=== PATIENT | male | born 1975 | race Caucasian/White ===

== ENCOUNTER 2016-11-18 18:31 | Inpatient (IN) | payer BC, OTHER ==
[~2016-11-18] VITALS: Ht 182.9 cm; Wt 65.3 kg
[2016-11-18 21:45] VITALS: BP 122/73
[2016-11-18 21:54] LABS: *AMPHETAMINE, URINE NEGATIVE (NEGATIVE); *BARBITURATE, URINE NEGATIVE (NEGATIVE); *CANNABINOID, URINE NEGATIVE (NEGATIVE); *COCCAINE, URINE POSITIVE (NEGATIVE); *OPIATE, URINE NEGATIVE (NEGATIVE); *PHENCYCLIDINE SCREEN,URINE NEGATIVE (NEGATIVE)
--- NOTE | 2016-11-18 22:00 | NUR ---
Admission Patient is a 41-year-old male, arriving from [place], to receive treatment for his reported Cocaine use. Patient was escorted on to unit to his room by male BHT, where body check was rendered. Skin check was rendered by male nurse and skin noted intact, and at that time patient was able to provide Admission Urine Drug Screen. Patient is alert, oriented, ambulatory with no assistance needed. Breathing even and non labored with no signs of pain or discomfort noted. Vital signs rendered and noted as 122/73, 86, 18, 98.5, 0/10, 97.9. Height noted at 6'0 and weight noted at 144lbs. Patient verbalized No known allergies. Patient wishes to be Full Code. Follows a Regular Diet at home. Patient is noted to be very calm and Cooperative. Patient denies any suicidal or homicidal thoughts. BUE and BLE noted WNL. Lung sounds clear with no cough. Bowel sounds active in all quadrants with LBM verbalized 11/17/16. Patient Denies any past medical history. No history of seizures. Patients chief complaint verbalized as ""I felt like my life was going backwards." He explains his use as: 1. Cocaine, Since the age of 20, using on and off with 2-3 day binges, while using patient uses 7gm via nasal or PO, with last use 11/18/16 0800. Patient reports of using the remainder of what he had left from the previous day. Patient reports signs and symptoms of withdrawal as "restlessness and body aches." He reports of having 5 years sober from 2007 to 2012. He Reports this is his first time in detox. No past medical history noted. Patient brought in home medications of Tenex 1mg for anxiety. Patient states "I never took them." Patient reports no PCP. All Information relayed to MD with orders for labs to be rendered and PRN Medications available for increased signs and symptoms of Withdrawal. All needs attended to promptly. Will continue plan of care as ordered.
[2016-11-18] MEDS ORDERED: LOPERAMIDE HCL 2 MG CAPSULE PO PRN ×2 (22:45)
[2016-11-18] MEDS ORDERED: HYDROXYZINE PAMOATE 25 MG CAPSULE PO PRN (22:45)
[2016-11-18] MEDS ORDERED: ACETAMINOPHEN 325 MG TABLET PO PRN (22:45)
[2016-11-18] MEDS ORDERED: METHOCARBAMOL 750 MG TABLET PO PRN (22:45)
[2016-11-18] MEDS ORDERED: MAG HYDROX/AL HYDROX/SIMETH 30 ML LIQUID UDC PO PRN (22:45)
[2016-11-18] MEDS ORDERED: MIRALAX 17 GM POWD.PACK PO PRN (22:45)
[2016-11-18] MEDS ORDERED: DICYCLOMINE HCL 20 MG TABLET PO PRN (22:45)
[2016-11-18] MEDS ORDERED: ONDANSETRON ODT 4 MG TAB.RAPDIS SL PRN (22:45)
[2016-11-18] MEDS ORDERED: diphenhydrAMINE 50 MG CAPSULE PO PRN (22:45)
[2016-11-18] MEDS ORDERED: CLONIDINE HCL 0.1 MG TABLET PO PRN (22:45)
[2016-11-18] MEDS ORDERED: IBUPROFEN 600 MG TABLET PO PRN (22:45)
[2016-11-18] MEDS ORDERED: MAGNESIUM HYDROXIDE 30 ML LIQUID UDC PO PRN (22:45)
[2016-11-18] MEDS ORDERED: PROMETHAZINE HCL 25 MG/1 ML VIAL IM PRN (22:45)
[2016-11-18 23:10] LABS: BASOPHILS # (AUTO) 0.1 K/uL (0.0-0.2); EOSINOPHILS # (AUTO) 0.6 K/uL (0.0-0.7); EOSINOPHILS % (AUTO) 6.8 % (0.0-7.0); HEMOGLOBIN 12.7 g/dL (14.0-18.0); LYMPHOCYTES # (AUTO) 2.9 K/uL (0.8-4.8); LYMPHOCYTES % (AUTO) 34.1 % (20.5-51.5); MEAN CORPUSCULAR HEMOGLOBIN 29.3 uug (27.0-31.0); MEAN CORPUSCULAR HGB CONC 33 g/dL (32.0-37.0); MEAN CORPUSCULAR VOLUME 87.7 fL (82.0-92.0); MONOCYTES # (AUTO) 0.7 K/uL (0.1-1.30); NEUTROPHILS # (AUTO) 4.2 K/uL (1.8-8.9); NEUTROPHILS % (AUTO) 50.1 % (38.5-71.5); PLATELET COUNT (AUTO) 367 K/uL (150-450); RED BLOOD CELL COUNT(AUTO) 4.33 MIL/uL (4.70-6.10); WHITE BLOOD COUNT (AUTO) 8.5 K/uL (4.0-11.2)
[2016-11-18 23:21] LABS: ALANINE AMINOTRANSFERASE 16 U/L (16-63); ALBUMIN 3.5 g/dL (3.4-5.0); ALKALINE PHOSPHATASE 60 U/L (50-136); ASPARTATE AMINOTRANSFERASE 16 U/L (15-37); BILIRUBIN,TOTAL 0.2 mg/dL (0.2-1.0); CALCIUM 9.3 mg/dL (8.5-10.1); CARBON DIOXIDE 30 mmol/L (21-32); CHLORIDE 105 mmol/L (98-107); GFR 56 mL/min (>60); GLUCOSE 136 mg/dL (74-106); MAGNESIUM 1.7 mg/dL (1.8-2.4); POTASSIUM 3.4 mmol/L (3.5-5.1); SODIUM SERUM 144 mmol/L (136-145); TOTAL PROTEIN, SERUM 6.8 g/dL (6.4-8.2); UREA NITROGEN, BLOOD 15 mg/dL (7-18)
[2016-11-18 23:26] LABS: CREATININE 1.4 mg/dL (0.6-1.3)
[2016-11-18 23:32] LABS: THYROID STIMULATING HORMONE 1.861 mIU/mL (0.358-3.740)
[2016-11-18] MEDS ORDERED: MAGNESIUM OXIDE 400 MG TABLET PO ONE (23:45)
[2016-11-18] MEDS ORDERED: POTASSIUM CHLORIDE 20 MEQ TAB.PRT.SR PO ONE (23:45)
[2016-11-18 23:50] LABS: ETHANOL < 3 MG/DL (0-0)
--- NOTE | 2016-11-18 23:50 | NUR ---
MD Communication/Medication Administration labs rendered and relayed to MD. Potassium noted at 3.4 and Magnesium noted at 1.7. New orders for Potassium 40meq x1 and Magnesium 400x1. Medications administered. patient able to tolerate well. Will continue to monitor.
[2016-11-19] MEDS ORDERED: POTASSIUM CHLORIDE 10 MEQ CAPSULE.SA PO ONE
[2016-11-19] MEDS ORDERED: MAGNESIUM OXIDE 400 MG TABLET PO ONE
[2016-11-19 00:07] VITALS: BP 111/64
[2016-11-19 00:15] LABS: HIV-1 p24 ANTIGEN NON REACTIVE (NONREACTIVE); HIV-1/2 ANTIBODY NON REACTIVE (NONREACTIVE)
[2016-11-19 04:29] VITALS: BP 109/60
[2016-11-19] MEDS ORDERED: GUAN1TAB16 PO (06:05)
--- NOTE | 2016-11-19 07:00 | NUR ---
End of Shift Patient is in bed sleeping. Breathing even and non labored. No signs of pain or discomfort noted. Patient is a 41 year old male, admitted 11/18/16 for Substance Dependence, under the care of Dr. Desai, with PRN medications available for increase signs of withdrawal. Patient verbalizes No known allergies, wishes to be full code, following a regular diet, skin intact, on fall precautions. No denies past medical history. No suicidal or homicidal ideations noted. Labs resulted with Potassium of 3.4 and Magnesium of 1.7, Supplemented with KDUR 40meq x1 and Mag OX 400mg x1. Patient tolerated well. All needs attended to promptly. Will endorse to continue plan of care a ordered.
--- NOTE | 2016-11-19 07:30 | NUR ---
START OF SHIFT NOTE: Received report from car shifter nurse. Patient is a 41 year old male, admitted 11/18/16 for cocaine dependence. Pt here for observation only. Pt is alert and oriented X4. Color good, skin warm and dry. Respirations even and unlabored. Pt resting in bed at this time. Safety precautions observed. Call light within reach. Will continue to monitor.
[2016-11-19 08:00] VITALS: BP 114/75
[2016-11-19] MEDS ORDERED: TUBERCULIN,PURIF.PROT.DERIV. 5 TU/0.1 ML TEST ID ONE (09:00)
[2016-11-19] MEDS: MULTIVITAMINS,THERAPEUTIC TABLET PO SCH (09:48)
--- NOTE | 2016-11-19 13:00 | NUR ---
VSS Pt has required no prn medications. Pt states he "feels good."
[2016-11-19 13:15] VITALS: BP 137/77
[2016-11-19 17:44] VITALS: BP 118/72
--- NOTE | 2016-11-19 18:47 | NUR ---
END OF SHIFT NOTE: Report given to shift commander nurse. Patient is a 41 year old male, admitted 11/18/16 for cocaine dependence. Pt here for observation only. Pt is alert and oriented X4. Color good, skin warm and dry. Respirations even and unlabored. Vital signs have remained stable throughout shift. Pt resting in bed at this time. Safety precautions observed. Call light within reach.
--- NOTE | 2016-11-19 19:05 | NUR ---
Start of Shift Patient is in activities room participating in group activities. Patient is a 41 year old male, admitted 11/18/16 for Substance Dependence, under the care of Dr. Desai, with PRN medications available for increase signs of withdrawal. Patient verbalizes No known allergies, wishes to be full code, following a regular diet, skin intact, on fall precautions. No denies past medical history. No suicidal or homicidal ideations noted. Per endorsement, No PRN Medications needed. Patient active with group activities and is tolerating plan of care well. Patient tolerated well. All needs attended to promptly. Will endorse to continue plan of care as ordered.
[2016-11-19 20:50] VITALS: BP 116/74
[2016-11-20 00:24] VITALS: BP 112/79
[2016-11-20 04:14] VITALS: BP 105/70
--- NOTE | 2016-11-20 06:54 | NUR ---
End of Shift Patient is in bed sleeping. Breathing even and non labored. No signs of pain or discomfort noted. Patient is a 41 year old male, admitted 11/18/16 for Substance Dependence, under the care of Dr. Desai, with PRN medications available for increase signs of withdrawal. Patient verbalizes No known allergies, wishes to be full code, following a regular diet, skin intact, on fall precautions. No denies past medical history. No suicidal or homicidal ideations noted. All needs attended to promptly. Will endorse to continue plan of care a ordered.
--- NOTE | 2016-11-20 07:35 | NUR ---
START OF SHIFT NOTE: Received report from shift supervisor melting nurse. Patient is a 41 year old male, admitted 11/18/16 for cocaine dependence. Pt here for observation only. Pt is alert and oriented X4. Color good, skin warm and dry. Respirations even and unlabored. Pt resting in bed at this time. Safety precautions observed. Call light within reach. Will continue to monitor.
[2016-11-20 08:30] VITALS: BP 116/68
[2016-11-20 08:33] LABS: CALCIUM 8.8 mg/dL (8.5-10.1); CREATININE 1.1 mg/dL (0.6-1.3); MAGNESIUM 1.9 mg/dL (1.8-2.4); POTASSIUM 4.2 mmol/L (3.5-5.1)
[2016-11-20] MEDS: MULTIVITAMINS,THERAPEUTIC TABLET PO SCH (09:00)
[2016-11-20 12:50] VITALS: BP 116/64
--- NOTE | 2016-11-20 13:00 | NUR ---
VSS Pt attending group
[2016-11-20 17:38] VITALS: BP 153/87
[2016-11-20 17:58] LABS: *CREATININE,URINE 51.8 mg/dL (30-125)
--- NOTE | 2016-11-20 18:46 | NUR ---
END OF SHIFT NOTE: Report given to cosmetic maker nurse. Patient is a 41 year old male, admitted 11/18/16 for cocaine dependence. Pt here for observation only. To be discharged tomorrow. Pt is alert and oriented X4. Color good, skin warm and dry. Respirations even and unlabored. Vital signs have remained stable throughout shift. No prn's given. Pt resting in bed at this time. Safety precautions observed. Call light within reach.
--- NOTE | 2016-11-20 19:20 | NUR ---
Start of Shift Patient is in activities room participating in group activities. Patient is a 41 year old male, admitted 11/18/16 for Substance Dependence, under the care of Dr. Desai, with PRN medications available for increase signs of withdrawal. Patient verbalizes No known allergies, wishes to be full code, following a regular diet, skin intact, on fall precautions. No denies past medical history. No suicidal or homicidal ideations noted. Per endorsement, Patient is set for discharge tomorrow morning 11/21/16 to [facility]. No PRN Medications needed. Patient active with group activities and is tolerating plan of care well. Patient tolerated well. All needs attended to promptly. Will endorse to continue plan of care as ordered.
[2016-11-20 21:09] VITALS: BP 126/82
--- NOTE | 2016-11-21 00:42 | NUR ---
Vitals Patient refused 0000 vitals. Patient verbalized "If Im sleeping then allow me to sleep." Patient is in bed sleeping. Breathing even and non labored. No signs of pain or discomfort. Patient respirations noted at 14. Will continue to monitor. Addendum: 11/21/16 at 0048 by KAYLIE CH LVN Amended: Links added.
--- NOTE | 2016-11-21 04:10 | NUR ---
Vitals Patient refused 0000 vitals. Patient verbalized "If Im sleeping then allow me to sleep." Patient is in bed sleeping. Breathing even and non labored. No signs of pain or discomfort. Patient respirations noted at 14. Will continue to monitor.
--- NOTE | 2016-11-21 04:10 | NUR ---
Vitals Patient refused 399 vitals. Patient verbalized "If Im sleeping then allow me to sleep." Patient is in bed sleeping. Breathing even and non labored. No signs of pain or discomfort. Patient respirations noted at 14. Will continue to monitor. Addendum: 11/21/16 at 0410 by KAYLIE CH LVN Amended: Links added.
--- NOTE | 2016-11-21 07:00 | NUR ---
Start of the Shift Report from the night nurse: pt is 41 y.o male here for Cocaine; 7g per day with binges; No tapers ordered, PRN medications only and is here for observation. Pt is on fall precautions. NKA, Full code, regular diet, no PSH, first time doing detox. Skin is intact. Low K+ and Mg so supplements given as ordered. No PRN's given last night by the night nurse. V/S stable. Pt is to be d/c'd today. Pt is asleep. in room. Will cont. to monitor the pt.
[2016-11-21 07:14] LABS: *AMPHETAMINE, URINE NEGATIVE (NEGATIVE); *BARBITURATE, URINE NEGATIVE (NEGATIVE); *CANNABINOID, URINE NEGATIVE (NEGATIVE); *COCCAINE, URINE NEGATIVE (NEGATIVE); *OPIATE, URINE NEGATIVE (NEGATIVE); *PHENCYCLIDINE SCREEN,URINE NEGATIVE (NEGATIVE)
--- NOTE | 2016-11-21 07:18 | NUR ---
End of Shift Patient is in bed sleeping. Breathing even and non labored. No signs of pain or discomfort noted. Patient is a 41 year old male, admitted 11/18/16 for Substance Dependence, under the care of Dr. Desai, with PRN medications available for increase signs of withdrawal. Patient verbalizes No known allergies, wishes to be full code, following a regular diet, skin intact, on fall precautions. No denies past medical history. No suicidal or homicidal ideations noted. Patient is set for discharge today 11/21/16 to [facility]. All needs attended to promptly. Will endorse to continue plan of care a ordered.
[2016-11-21 08:00] VITALS: BP 114/82
[2016-11-21] MEDS: MULTIVITAMINS,THERAPEUTIC TABLET PO SCH (08:39)
--- NOTE | 2016-11-21 09:45 | NUR ---
Discharge Pt is A&O x 4 ambulatory independently. Pt is stable & denies chest pain. No SOB. V/S stable. No hallucinations, delusions or suicidal ideations present. No w/d s/sx present. Pt is d/c'd to [facility] and given belonging, medications, d/c summary report and prescriptions with [facility] transportation.
[2016-11-22 04:23] LABS: HCV AB 0.1 s/co ratio (0.0-0.9); HEPATITIS B CORE AB, IgM Negative (Negative); HEPATITIS B SURFACE AG Negative (Negative)
== END 2016-11-21 09:45 | disposition home or self-care (01) | DRG 895 ==
LOC: SRC 20:36
PROVIDERS: ADMIT Internal Medicine; ATTEND Internal Medicine
PROC: HZ2ZZZZ Detoxification Services for Substance Abuse Treatment (ICD-10-PCS; principal; 2016-11-18)
PROC: HZ31ZZZ Individual Counseling for Substance Abuse Treatment, Behavioral (ICD-10-PCS; 2016-11-20)
PROC: HZ41ZZZ Group Counseling for Substance Abuse Treatment, Behavioral (ICD-10-PCS; 2016-11-20)
DX: F14.288 Cocaine dependence with other cocaine-induced disorder (principal); N17.9 Acute kidney failure, unspecified; F17.210 Nicotine dependence, cigarettes, uncomplicated; N14.1 Nephropathy induced by other drugs, medicaments and biological substances; E83.42 Hypomagnesemia; F12.90 Cannabis use, unspecified, uncomplicated; F41.9 Anxiety disorder, unspecified; D64.9 Anemia, unspecified; F32.9 Major depressive disorder, single episode, unspecified; Z83.79 Family history of other diseases of the digestive system; I51.7 Cardiomegaly; E87.6 Hypokalemia
CPT/HCPCS: 36415; 70030-TC; 71010; 80307; 80349; 82306; 82746; 83550; 83735; 84300; 84443; 85025; 86592; 86705; 86803; 87340; 87806; 93005; A4663; G6040-TC

== ENCOUNTER 2022-10-02 12:18 | Emergency (ER) | payer BC, OTHER ==
[~2022-10-02] VITALS: Ht 182.9 cm; Wt 74.8 kg
--- NOTE | 2022-10-02 12:32 | NUR ---
[email or web address], medical screening exam in progress
--- NOTE | 2022-10-02 13:33 | NUR ---
Patient wants to leave now and not get more scans.
--- NOTE | 2022-10-02 13:34 | NUR ---
Patient does not want any more scans.
--- NOTE | 2022-10-02 13:40 | NUR ---
Patient does not wish to proceed with medical care recommended by Dr. Hernández. Patient given information related to possible complications, up to and including , which could occur as a result of leaving the hospital at this time. Patient verbalizes understanding of risks involved due to leaving against medical advice. Patient has signed AMA form.
--- NOTE | 2022-10-02 13:41 | NUR ---
Copies of all tests' results were given to patient.
== END 2022-10-02 13:44 | disposition left against medical advice (07) ==
LOC: ER 12:21
DX: S02.652A Fracture of angle of left mandible, initial encounter for closed fracture (principal); S16.1XXA Strain of muscle, fascia and tendon at neck level, initial encounter; S89.91XA Unspecified injury of right lower leg, initial encounter; V49.40XA Driver injured in collision with unspecified motor vehicles in traffic accident, initial encounter; Y92.410 Unspecified street and highway as the place of occurrence of the external cause; M21.961 Unspecified acquired deformity of right lower leg; Z53.29 Procedure and treatment not carried out because of patient's decision for other reasons
CPT/HCPCS: 72100; 72125; A4663

== ENCOUNTER 2024-02-29 16:03 | Emergency (ER) | payer BC ==
[~2024-02-29] VITALS: Ht 182.9 cm; Wt 72.6 kg
[2024-02-29] MEDS ORDERED: ACET1TAB23 PO (18:13)
[2024-02-29 18:19] VITALS: BP 112/71; O2SAT 98
== END 2024-02-29 18:20 | disposition home or self-care (01) ==
LOC: ER 16:21
DX: S16.1XXA Strain of muscle, fascia and tendon at neck level, initial encounter (principal); S29.012A Strain of muscle and tendon of back wall of thorax, initial encounter; S40.011A Contusion of right shoulder, initial encounter; Z79.899 Other long term (current) drug therapy; V43.52XA Car driver injured in collision with other type car in traffic accident, initial encounter; Y93.89 Activity, other specified; Y92.410 Unspecified street and highway as the place of occurrence of the external cause; Y99.8 Other external cause status
CPT/HCPCS: 72072; 73030; A4606; A4663